=== PATIENT | female | born 1945 | race Caucasian/White ===

== ENCOUNTER → 2019-01-29 | Outpatient (CLI) | payer MEDICARE, OTHER ==
[~2019-01-29] MED LIST: ALLEGRA 60MG TA60 MG PO; CALCIUM CITRAT950 MG PO; OCUVITE1 TA1 PO; VITAMIN D 50,1.25 MG PO; ZOLOFT 50MG50 MG PO
== END ==
LOC: MC.RAD 13:45
DX: Z12.31 Encounter for screening mammogram for malignant neoplasm of breast (principal)